=== PATIENT | female | born 1975 | race Caucasian/White ===

== ENCOUNTER 2021-11-22 07:43 | Day surgery (SDC) | payer OTHER ==
[~2021-11-22] VITALS: Ht 165.1 cm; Wt 50.8 kg
[~2021-11-22 07:43] MED LIST: AMBIEN10 MG PO; ZOLOFT50 MG PO; ZYRTEC10 M3 PO
== END 2021-11-22 22:10 | disposition home or self-care (01) ==
LOC: CIR.AMB 07:43
PROVIDERS: ATTEND Orthopaedic Surgery Hand Surgery
DX: S62.325A Displaced fracture of shaft of fourth metacarpal bone, left hand, initial encounter for closed fracture (principal); S62.326A Displaced fracture of shaft of fifth metacarpal bone, right hand, initial encounter for closed fracture; Z20.822 Contact with and (suspected) exposure to COVID-19; Z85.841 Personal history of malignant neoplasm of brain

== ENCOUNTER 2023-03-06 05:30 | Day surgery (SDC) | payer OTHER ==
[2023-02-28 13:19] LABS: PH,URINE 7.5 (5.0-8.0); URINE APPEARANCE Turbid; URINE BILIRRUBIN Negative (NEGATIVE); URINE BLOOD Negative; URINE COLOR Yellow; URINE GLUCOSE Negative (NEGATIVE); URINE LEUKOCYTE Negative; URINE NITRATE Negative; URINE PROTEIN Negative (NEGATIVE); URINE UROBILINOGEN 0.2 E.U./dl
[2023-02-28 13:22] LABS: URINE BACTERIA 381.7 uL (0.0-1933); URINE EPITHELIAL CELLS 41.7 uL (0.0-38.8); URINE RBC 25.7 uL (0.0-20.8); URINE WBC 6.1 uL (0.0-23.2)
[2023-02-28 13:29] LABS: HEMATOCRIT 34.4 % (36.0-45.00); HEMOGLOBIN 11.8 g/dL (12.0-15.00); MEAN CORPUSCULAR HEMOGLOBIN 29.5 pg (27.00-32.0); MEAN CORPUSCULAR HGB CONC 34.3 g/dl (32.0-36.0); PLATELET COUNT 206 K/uL (150-450); RED CELL DISTRIBUTION WIDTH 12.6 % (11.5-14.5)
[2023-02-28 13:38] LABS: URINE CRYSTALS MANY /HPF
[2023-02-28 14:06] LABS: INR 0.98; PARTIAL THROMBOPLASTIN TIME 31.7 SECONDS (22.0-34.0); PROTHROMBIN TIME 10.3 SECONDS (9.0-11.5)
[2023-02-28 14:15] LABS: ALBUMIN 3.8 gm/dL (3.4-5.0); BILIRUBIN TOTAL 0.38 mg/dL (0.3-1.2); CREATININE SERUM 0.63 mg/dL (0.55-1.02); GFR 101.29; GLOBULINA 3.1 G/DL (2.4-3.5); POTASSIUM 3.69 mEq/L (3.5-5.1); TOTAL PROTEIN 6.9 gm/dL (6.4-8.2)
== END 2023-03-06 11:30 | disposition home or self-care (01) ==
LOC: CIR.AMB 05:30
PROVIDERS: ATTEND Orthopaedic Surgery Hand Surgery
DX: M62.442 Contracture of muscle, left hand (principal); Z88.8 Allergy status to other drugs, medicaments and biological substances; Z20.822 Contact with and (suspected) exposure to COVID-19